=== PATIENT | male | born 1955 | race Caucasian/White ===

== ENCOUNTER 2017-06-11 16:50 | Inpatient (IN) | payer OTHER ==
[~2017-06-11] VITALS: Ht 182.9 cm; Wt 105.0 kg
--- NOTE | 2017-06-11 17:06 | EKG ---
[address] [address] Test Date: 2017-06-11 Test Time: 16:58:25 Pat Name: ARRON BURNS Department: Room: Gender: M Tuckpointer: : 1955 Requested By: COREY MARIA Order Number: [id number] Reading MD: Patrice Zambrano Measurements Intervals [place] Rate: 138 P: [place]: QRS: 37 QRSD: 86 T: 96 QT: 334 QTc: 514 Interpretive Statements ATRIAL FIB./FLUTTER WITH RAPID VENTRICULAR RESPONSE LOW LIMB LEAD VOLTAGE QRS(T) CONTOUR ABNORMALITY CANNOT RULE OUT ANTEROSEPTAL MYOCARDIAL DAMAGE RI6.01 Unconfirmed report No previous ECG available for comparison Electronically Signed On 06-18-2017 9:15:11 CDT by Patrice Zambrano
[2017-06-11 17:18] LABS: BASO # 0.1 x10^3/uL (0.0-0.2); BASO % 1 % (0-3); EOS # 0.2 x10^3/uL (0.0-0.7); EOS % 3 % (0-3); HEMATOCRIT 45.3 % (39.0-53.0); HEMOGLOBIN 15.1 g/dL (13.0-17.5); LYMPH % 33 % (24-48); MEAN CORPUSCULAR HEMOGLOBIN 31 pg (25-35); MEAN CORPUSCULAR HGB CONC 33 g/dL (31-37); MEAN CORPUSCULAR VOLUME 92 fL (79-100); MONO # 0.8 x10^3/uL (0.0-1.1); MONO % 13 % (0-9); NEUT % 50 % (31-73); PLATELET COUNT 113 x10^3/uL (140-400); RED BLOOD COUNT 4.93 x10^6/uL (4.30-5.70); RED CELL DISTRIBUTION WIDTH 13.4 % (11.5-14.5)
--- NOTE | 2017-06-11 17:24 | PHYS DOC ---
Past History Past Medical History: A-Fib, High Cholesterol Past Surgical History: Other Alcohol Use: None Drug Use: None Adult General Chief Complaint Chief Complaint: SHORTNESS OF BREATH HPI HPI 62-year-old male presenting to the emergency department after being in a local primary care doctor's office to be evaluated for shortness of breath. Upon arrival to their facility the patient was noted to have a rapid heartbeat and was subsequently transferred here by EMS for stabilization. The patient has mild shortness of breath. He denies chest pain. He does feel palpitations. Onset 2 days. Location chest. Duration intermittent. No alleviating or exacerbating factors present. He has a history of an ablation previously. Review of systems is negative for fevers chills nausea vomiting cough. All other review of systems is negative unless otherwise noted in history of present illness. ED course: 62-year-old male presenting to the emergency department today with palpitations. Patient is found to be in A. fib with RVR. Diltiazem bolus and drip ordered. Blood work sent. Patient was then admitted to our ICU for further evaluation workup and care. Troponin mildly elevated. Aspirin given. Cardiology consult placed. Review of Systems Review of Systems SEE ABOVE. Family History Family History E Current Medications Current Medications Current Medications Medications (Trade) Dose Ordered Sig/William Start Time Stop Time Status Last Admin Dose Admin Diltiazem HCl (Cardizem) 20 mg 1X ONCE 06/11/17 17:30 06/11/17 17:31 Diltiazem HCl 125 mg/Dextrose 125 ml @ 10 mls/hr 1X ONCE 06/11/17 17:30 06/12/17 05:59 Allergies Allergies Allergies Coded Allergies Type Severity Reaction Last Updated Verified Fuhvbbu-Ckn-Sks Reductase Inhibitor Allergy Unknown 06/11/17 Yes digoxin Allergy Unknown 06/11/17 Yes lisinopril Allergy Unknown 06/11/17 Yes Physical Exam Physical Exam Constitutional: Well developed, well nourished, no acute distress, non-toxic appearance. [] HENT: Normocephalic, atraumatic, bilateral external ears normal, oropharynx moist, no oral exudates, nose normal. [] Eyes: PERRLA, EOMI, conjunctiva normal, no discharge. [] Neck: Normal range of motion, no tenderness, supple, no stridor. [] Cardiovascular:Heart rate regular rhythm, no murmur [] Lungs & Thorax: Bilateral breath sounds clear to auscultation [] Abdomen: Bowel sounds normal, soft, no tenderness, no masses, no pulsatile masses. [] Skin: Warm, dry, no erythema, no rash. [] Back: No tenderness, no CVA tenderness. [] Extremities: No tenderness, no cyanosis, no clubbing, ROM intact, no edema. [] Neurologic: Alert and oriented X 3, normal motor function, normal sensory function, no focal deficits noted. [] Psychologic: Affect normal, judgement normal, mood normal. [] Current Patient Data Vital Signs Vital Signs Date Time Temp Pulse Resp B/P (MAP) Pulse Ox O2 Delivery O2 Flow Rate FiO2 06/11/17 16:57 97.9 128 20 98 Room Air EKG EKG [] Radiology/Procedures Radiology/Procedures [] Course & Med Decision Making Course & Med Decision Making Pertinent Labs and Imaging studies reviewed. (See chart for details) [] Dragon Disclaimer Dragon Disclaimer This chart was dictated in whole or in part using Voice Recognition software in a busy, high-work load, and often noisy Emergency Department environment. It may contain unintended and wholly unrecognized errors or omissions. Departure Departure: Impression: Primary Impression: Atrial fibrillation with RVR Additional Impression: Elevated troponin Disposition: ADMITTED INPATIENT Condition: IMPROVED Referrals: ROSENDO WARD MD (PCP) Problem Qualifiers COREY MARIA MD Jun 11, 2017 17:24
[2017-06-11] MEDS ORDERED: dilTIAZem 25 MG/5 ML VIAL IVP ONE (17:30)
[2017-06-11 17:36] LABS: ALBUMIN 3.8 g/dL (3.4-5.0); CALCIUM 8.4 mg/dL (8.5-10.1); CREATININE 1.4 mg/dL (0.7-1.3); DIRECT BILIRUBIN 0.3 mg/dL (0.0-0.2); GFR 51.2; MAGNESIUM 2.3 mg/dL (1.8-2.4); POTASSIUM 4.4 mmol/L (3.5-5.1); TOTAL PROTEIN 6.7 g/dL (6.4-8.2)
[2017-06-11 17:37] LABS: TOTAL BILIRUBIN 1.6 mg/dL (0.2-1.0)
[2017-06-11 18:12] LABS: BACTERIA,URINE 0 /HPF (0-FEW); BILIRUBIN,URINE NEG (NEG); CLARITY,URINE CLEAR; COLOR,URINE YELLOW; GLUCOSE,URINE NEG (NEG); NITRITE,URINE NEG (NEG); RBC,URINE 0 /HPF (0-2); SQUAMOUS EPITHELIAL CELL,UR OCC /LPF; UROBILINOGEN,URINE 0.2 mg/dL (0.2 mg/dL); WBC,URINE 0 /HPF (0-4)
[2017-06-11] MEDS ORDERED: MORPHINE SULFATE 2 MG/ML DISP.SYRIN. IV PRN (18:15)
[2017-06-11] MEDS ORDERED: ONDANSETRON PF 4 MG/2 ML VIAL. IV PRN ×2 (18:15→19:00)
[2017-06-11 19:26] VITALS: BP 95/72
[2017-06-11 20:08] VITALS: BP 103/86
[2017-06-11 21:00] VITALS: BP 106/63
[2017-06-11] MEDS: ENOXAPARIN ** NOTE DOSE ** SYRINGE SQ SCH (21:05)
[2017-06-11 21:54] VITALS: BP 99/74
[2017-06-11] MEDS ORDERED: DEXTROSE 5% IV PRN (22:45)
[2017-06-11] MEDS ORDERED: DILTIAZEM IV PRN (22:45)
[2017-06-11 22:58] VITALS: BP 91/71
[2017-06-11 23:51] VITALS: BP 81/67
[2017-06-12] VITALS (29 sets, daily range): BP systolic 76–125; BP diastolic 55–94
--- NOTE | 2017-06-12 05:15 | ACF ---
Admission Criteria Forms ATRIAL FIBRILLATION Clinical Indications for Admission to Inpatient Care (Place 'X' for any and all applicable criteria): Admission indicated for ANY ONE of the following(1)(2)(3)(4)(5) : [ ]I. Myocardial ischemia [X]II. Dyspnea or hypoxemia [ ]III. Hemodynamic instability [ ]IV. Heart failure (e.g., pulmonary edema) (7) [ ]V. New-onset (less than 48 hours) atrial fibrillation with high risk for causing complications secondary to comorbidities (eg, symptomatic heart failure ) [ ]. Altered mental status [ ]VII. Syncope [ ]VIII. Patient has implantable cardioverter defibrillator that has fired more than once within past 24hr or needs immediate adjustment of settings that cannot be done other than in inpatient setting. (8) [ ]IX. Suspected accessory pathway (e.g., Nqbgg-Strykltmk-Psicp syndrome) on ECG [ ]X. Recent systemic thromboembolism (eg, stroke) [ ]XI. Medication toxicity (e.g., digitalis) causing arrhythmia(9) [ ]XII. Underlying medical condition that necessitates inpatient care (e.g., thyrotoxicosis, pneumonia) (10) [ ]XIII. Continuous ECG monitoring is required for condition causing arrhythmia (e.g., severe hyperkalemia, hypokalemia, acid-base disturbance).(11)(12)(13) [ ]XIV. Initiation of antiarrhythmic drug therapy is needed in patient at high risk of adverse effects as indicated by ANY ONE of the following: [ ]a) Significant structural heart disease (e.g., reduced ejection fraction, congenital heart disease, valvular heart disease) [ ]b) Prolonged QT interval [ ]c) Underlying sinus node or atrioventricular conduction disturbances [ ]d) Need for treatment with antiarrhythmic drugs that have significant proarrhythmic potential (e.g., dofetilide, sotalol, procainamide) [ ]e) Patient whose sinus rhythm has never been observed on ECG [ ]XV. Intolerable symptoms despite optimal outpatient treatment [ ]XVI. Elective or urgent cardioversion that cannot be performed on outpatient basis or during observation care. [A] (Use also Atrial Fibrillation: Observation Care ) as appropriate.(14) [ ]XVII.Contraindications and/or Inappropriate clinical situations for Observational Care in patients with Atrial Fibrillation, when ANY ONE of the following is required: [ ]a) Patient with High risk of cardiac embolism (e.g, patients with previous cardiac embolism, LVEF < 40%, age >75 and patients with prosthetic valve) 18 [ ]b) Patient with Moderate risk including DM patient, CAD and patient aged 65-75 18 [ ]c) Patient with any change in cardiac biomarker especially troponin should be managed as high risk in an inpatient setting 19 [ ]d) Physician judgement irrespective of ECG and other diagnostic findings 20 [ ]XVIII.General contraindications and/or Inappropriate clinical situations for Observational Care in patients with Atrial Fibrillation, when ANY ONE of the following is required: [ ]a) Prediction of prolongation of LOS based on ANY ONE of the following may be considered as a contraindication for observational care 2, 3, 4, 5, 6, 7, 8, 9, 10, 11 [ ]i) Age > 65 yrs. [ ]ii) Patient arriving by ambulance [ ]iii) Patient with high acuity [ ]iv) Patient requiring vital sign monitoring [ ]v) Patient on IV medication [ ]b) Systolic blood pressures 180mmHg 3,12 [ ]c) Patient with altered mental status including delirium and other alteration of consciousness3 [ ]d) Patient whose discharge disposition will be to a [facility] home or rehabilitation home should not be managed in Emergency Department Observation Unit. CMS rule requires 3 days hospital stay before such placement.3,13 [ ]e) Patient with failure to thrive due to broad array of etiologies 3,16,17 [ ]f) Inability to ambulate 3,14 Extended stay beyond goal length of stay may be needed for (1)(25)(26): [ ]a) Unstable comorbidities [ ]b) Persistently uncontrolled atrial fibrillation or other arrhythmias [ ]c) Acute thromboembolic event (e.g., stroke, limb ischemia) [ ]d) Need for inpatient attainment of full anticoagulation The original [employer] content created by [employer] has been revised. The portions of the content which have been revised are identified through the use of italic text or in bold, and [facility] has neither reviewed nor approved the modified material. All other unmodified content is copyright [employer]. Please see references footnoted in the original [facility] edition 2016 Admission Criteria Met?: Yes ROSELYN MORTON Jun 12, 2017 05:14
[2017-06-12 06:33] LABS: CALCIUM 8.4 mg/dL (8.5-10.1); CREATININE 1.2 mg/dL (0.7-1.3); GFR 61.1; POTASSIUM 4.2 mmol/L (3.5-5.1)
[2017-06-12 06:36] LABS: BASO % 1 % (0-3); EOS # 0.2 x10^3/uL (0.0-0.7); EOS % 4 % (0-3); HEMATOCRIT 44.2 % (39.0-53.0); HEMOGLOBIN 14.9 g/dL (13.0-17.5); LYMPH % 36 % (24-48); MEAN CORPUSCULAR HEMOGLOBIN 31 pg (25-35); MEAN CORPUSCULAR HGB CONC 34 g/dL (31-37); MEAN CORPUSCULAR VOLUME 92 fL (79-100); MONO # 0.6 x10^3/uL (0.0-1.1); MONO % 12 % (0-9); NEUT # 2.6 x10^3uL (1.8-7.7); NEUT % 48 % (31-73); PLATELET COUNT 112 x10^3/uL (140-400); RED BLOOD COUNT 4.81 x10^6/uL (4.30-5.70); RED CELL DISTRIBUTION WIDTH 13.6 % (11.5-14.5); WHITE BLOOD COUNT 5.4 x10^3/uL (4.0-11.0)
[2017-06-12] MEDS: ENOXAPARIN ** NOTE DOSE ** SYRINGE SQ SCH (07:18)
[2017-06-12 09:20] LABS: DIRECT BILIRUBIN 0.3 mg/dL (0.0-0.2); TOTAL BILIRUBIN 1.8 mg/dL (0.2-1.0)
--- NOTE | 2017-06-12 09:22 | PDOC2 ---
CONSULT Date of Admission DATE: 06/12/17 TIME: : Reason for Consult: atrial fibrillation with RVR Problem List Problems Medical Problems: (1) Atrial fibrillation with RVR Status: Acute (2) Elevated troponin Status: Acute History of Present Illness Mr Perez is a 62 year old male with history of atrial fibrillation s/p RFA about 5-6 years ago. He presents with complaints of dyspnea and dry cough for about 2 weeks. He reports orthopnea and PND worsened in the last 36 hours. He was seen in his PCP office and found to be in atrial fibrillation with RVR so admitted to hospital. He denies any chest discomfort. He denies lightheadedness or syncope. He denies edema. Dyspnea is increased with exertion (flight of stairs) and over the last couple days with supine position. He denies regular exercise but remains active and denies functional limitations normally. 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 He reports normal cardiac cath at that time. Past Surgical History none Family History cancer Social History , [place], non smoker x 10 years, no significant ETOH, no illicit drugs Current Medications Current Medications Diltiazem HCl (Cardizem) 20 mg 1X ONCE IVP Last administered on 06/11/17 17:10 ; Start 06/11/17 at 17:30; Stop 06/11/17 at 17:31; Status DC Diltiazem HCl 125 mg/Dextrose 125 ml @ 10 mls/hr 1X ONCE IV Last administered on 06/11/17 17:32; Start 06/11/17 at 17:30; Stop 06/12/17 at 05:59; Status DC Ondansetron HCl (Zofran) 4 mg PRN Q4HRS PRN IV NAUSEA/VOMITING; Start 06/11/17 at 18:15; Stop 06/11/17 at 18:51; Status DC Morphine Sulfate (Morphine 2mg Syringe) 2 mg PRN Q2HR PRN IV PAIN; Start at 18:15; Stop 06/12/17 at 18:14 Ondansetron HCl (Zofran) 4 mg PRN Q8HRS PRN IV NAUSEA/VOMITING; Start 06/11/17 at 19:00 Enoxaparin Sodium (Lovenox 100mg Syringe) 100 mg Q12HR SQ Last administered on 8/8/17at 07:18; Start 06/11/17 at 21:00 Diltiazem HCl 100 mg/Dextrose 125 ml @ 0 mls/hr CONT PRN IV SEE I/O RECORD; Start 06/11/17 at 22:45 Allergies: Coded Allergies: Zobeuyf-Hfv-Arl Reductase Inhibitor (Verified Allergy, Unknown, 06/11/17) digoxin (Verified Allergy, Unknown, 06/11/17) lisinopril (Verified Allergy, Unknown, 06/11/17) Review of System as per HPI or negative General: Alert, Oriented X3, Cooperative, No acute distress HEENT: Atraumatic, EOMI, Mucous membr. moist/pink, Other (No bruits, No JVD/HJR ) Lungs: Other (few crackles left base otherwise essentially clear) Heart: Other (irregular rate and rhythm without gallops, clicks or rubs. no obvious murmurs. ) Abdomen: Normal bowel sounds, Soft, No tenderness Extremities: No cyanosis, No edema, Normal pulses Neuro: Normal speech, Strength at 5/5 X4 ext Psych/Mental Status: Mental status NL, Mood NL VITALS Vital Signs Date Time Temp Pulse Resp B/P (MAP) Pulse Ox O2 Delivery O2 Flow Rate FiO2 06/12/17 08:30 86 20 91/63 (72) 93 Room Air 06/12/17 07:00 97.9 Labs Laboratory Tests Test 06/11/17 17:05 06/11/17 17:25 06/12/17 00:02 06/12/17 06:00 White Blood Count 6.0 x10^3/uL (4.0-11.0) 5.4 x10^3/uL (4.0-11.0) Red Blood Count 4.93 x10^6/uL (4.30-5.70) 4.81 x10^6/uL (4.30-5.70) Hemoglobin 15.1 g/dL (13.0-17.5) 14.9 g/dL (13.0-17.5) Hematocrit 45.3 % (39.0-53.0) 44.2 % (39.0-53.0) Mean Corpuscular Volume 92 fL (79-100) 92 fL (79-100) Mean Corpuscular Hemoglobin 31 pg (25-35) 31 pg (25-35) Mean Corpuscular Hemoglobin Concent 33 g/dL (31-37) 34 g/dL (31-37) Red Cell Distribution Width 13.4 % (11.5-14.5) 13.6 % (11.5-14.5) Platelet Count 113 x10^3/uL (140-400) 112 x10^3/uL (140-400) Neutrophils (%) (Auto) 50 % (31-73) 48 % (31-73) Lymphocytes (%) (Auto) 33 % (24-48) 36 % (24-48) Monocytes (%) (Auto) 13 % (0-9) 12 % (0-9) Eosinophils (%) (Auto) 3 % (0-3) 4 % (0-3) Basophils (%) (Auto) 1 % (0-3) 1 % (0-3) Neutrophils # (Auto) 3.0 x10^3uL (1.8-7.7) 2.6 x10^3uL (1.8-7.7) Lymphocytes # (Auto) 2.0 x10^3/uL (1.0-4.8) 2.0 x10^3/uL (1.0-4.8) Monocytes # (Auto) 0.8 x10^3/uL (0.0-1.1) 0.6 x10^3/uL (0.0-1.1) Eosinophils # (Auto) 0.2 x10^3/uL (0.0-0.7) 0.2 x10^3/uL (0.0-0.7) Basophils # (Auto) 0.1 x10^3/uL (0.0-0.2) 0.0 x10^3/uL (0.0-0.2) Prothrombin Time 11.1 SEC (9.4-11.4) Prothromb Time International Ratio 1.1 (0.9-1.1) Activated Partial Thromboplast Time 26 SEC (23-33) Sodium Level 141 mmol/L (136-145) 141 mmol/L (136-145) Potassium Level 4.4 mmol/L (3.5-5.1) 4.2 mmol/L (3.5-5.1) Chloride Level 106 mmol/L (98-107) 107 mmol/L (98-107) Carbon Dioxide Level 27 mmol/L (21-32) 27 mmol/L (21-32) Anion Gap 8 (6-14) 7 (6-14) Blood Urea Nitrogen 16 mg/dL (8-26) 15 mg/dL (8-26) Creatinine 1.4 mg/dL (0.7-1.3) 1.2 mg/dL (0.7-1.3) Estimated GFR (Cockcroft-Gault) 51.2 61.1 Glucose Level 95 mg/dL (70-99) 103 mg/dL (70-99) Calcium Level 8.4 mg/dL (8.5-10.1) 8.4 mg/dL (8.5-10.1) Magnesium Level 2.3 mg/dL (1.8-2.4) Total Bilirubin 1.6 mg/dL (0.2-1.0) Direct Bilirubin 0.3 mg/dL (0.0-0.2) Aspartate Amino Transf (AST/SGOT) 35 U/L (15-37) Alanine Aminotransferase (ALT/SGPT) 42 U/L (16-63) Alkaline Phosphatase 69 U/L (46-116) Troponin I Quantitative 0.088 ng/mL (0-0.055) 0.156 ng/mL (0-0.055) 0.219 ng/mL (0-0.055) SZ-Vjo-L-Type Natriuretic Peptide 3068 pg/mL (0-124) Total Protein 6.7 g/dL (6.4-8.2) Albumin 3.8 g/dL (3.4-5.0) Lipase 113 U/L (73-393) Urine Collection Type Unknown Urine Color Yellow Urine Clarity Clear Urine pH 5.5 Urine Specific [place] <=1.005 Urine Protein Neg (NEG-TRACE) Urine Glucose (UA) Neg mg/dL (NEG) Urine Ketones (Stick) Neg mg/dL (NEG) Urine Blood Neg (NEG) Urine Nitrite Neg (NEG) Urine Bilirubin Neg (NEG) Urine Urobilinogen Dipstick 0.2 mg/dL (0.2 mg/dL) Urine Leukocyte Esterase Neg (NEG) Urine RBC 0 /HPF (0-2) Urine WBC 0 /HPF (0-4) Urine Squamous Epithelial Cells Occ /LPF Urine Bacteria 0 /HPF (0-FEW) Images EKG - atrial fibrillation with RVR and non specific st/t abn CXR - IMPRESSION: Probable mild pulmonary vascular congestion. Small pulmonary nodule in the right upper lobe. Assessment/Plan 1. Atrial fibrillation with RVR - unknown duration, rate control improved with Cardizem drip. History of multiple failed antiarrhythmics and an intolerance to digoxin. S/P RFA in 2010, maintained with coreg and without significant problems since that time. [id number] score = 0. 2. elevated troponin c/w NSTEMI - prob demand related. Await echocardiogram. (reportedly normal coronaries by cath about 5 years ago). Check lipids. 3. mild heart failure, prob diastolic secondary to AF RVR. 4. hypotension, mild 5. hyperlipidemia - intolerant to statins. Consider Repatha or Praluent if lipids warrant. Suggest stop cardizem and change to amiodarone, add anticoagulant ( I believe Xarelto is on formulary at [facility]) as he may require cardioversion and atrial fibrillation duration is unknown. await echo. plan for MPI in am unless significant abnormalities on echo. Add low dose metoprolol for rate control if pressure will tolerate. May need low dose digoxin for added rate control if pressures remain low. Problems: MARNIE VARGAS APRN Jun 12, 2017 09:22
--- NOTE | 2017-06-12 11:10 | RAD ---
Indication shortness of air. AP views of the chest were obtained and are compared to a study 10/10/2007. There is slight interstitial prominence relative to the previous exam. Moderate pulmonary vascular congestion is suspect. There is no consolidated pneumonia. There is tiny nodule in the right upper lobe. Follow-up imaging should be considered. There is no pleural fluid or pneumothorax. The findings, regarding the nodule in the right upper lobe, were communicated to Dr. Ivan, at 1105 IMPRESSION: Probable mild pulmonary vascular congestion. Small pulmonary nodule in the right upper lobe.
[2017-06-12] MEDS: METOPROLOL TART IMMED RELEASE 25 MG TABLET PO SCH ×2 (11:45→21:19)
[2017-06-12] MEDS ORDERED: AMIODARONE 150 MG in IV DEXTROSE 5% 100 ML IVP ONE (11:45)
[2017-06-12] MEDS ORDERED: AMIODARONE 450 MG in IV DEXTROSE 5% 250 ML IV PRN (11:55)
--- NOTE | 2017-06-12 13:12 | RAD ---
Indication headaches for one week. Noncontrast images of the head were obtained. No prior imaging is available for comparison. The calvarium appears unremarkable. The visualized paranasal sinuses appear normal. There is no subdural or epidural hematoma. There is no mass or midline shift. No hemorrhage is seen. No acute finding is apparent. IMPRESSION: No acute or significant finding is seen in the head PQRS Compliance Statement: One or more of the following individualized dose reduction techniques were utilized for this examination: 1. Automated exposure control 2. Adjustment of the mA and/or kV according to patient size 3. Use of iterative reconstruction technique
--- NOTE | 2017-06-12 13:37 | CARD ---
APPROVED REPORT EXAM: Two-dimensional and M-mode echocardiogram with Doppler and color Doppler. Other Information Quality : GoodHR: 99bpm Rhythm : Atrial Fibrillation INDICATION Atrial Fibrillation RVR 2D DIMENSIONS RVDd2.9 (2.9-3.5cm)Left Atrium(2D)4.4 (1.6-4.0cm) IVSd1.0 (0.7-1.1cm)Aortic Root(2D)3.5 (2.0-3.7cm) LVDd5.9 (3.9-5.9cm)LVOT Diameter2.3 (1.8-2.4cm) PWd1.0 (0.7-1.1cm)LVDs4.0 (2.5-4.0cm) FS (%) 32.3 %SV102.8 ml LVEF(%)59.8 (>50%) Aortic Valve AoV Peak Bola.102.2cm/sAoV VTI16.3cm AO Peak GR.4.2mmHgLVOT Peak Bola.78.4cm/s LVOT VTI 12.18cmAO Mean GR.3mmHg HAYLEY (VMAX)3.90jw9AUK (VTI)3.09cm2 Pulmonary Valve PV Peak Txmzrwur73.8cm/sPV Peak Grad.2mmHg Tricuspid Valve TR P. Owmoqpfx888gd/sTR Peak Gr.40mmHg LEFT VENTRICLE The left ventricle is normal size. There is normal left ventricular wall thickness. Left ventricle sy stolic function is severely impaired. The Ejection Fraction is 25-30%. There is moderate to severe gl obal hypokinesis of the left ventricle with inferior akinesis. Tissue Doppler imaging reveals severe left ventricular diastolic dysfunction. No left ventricle thrombus noted on this study. RIGHT VENTRICLE The right ventricle is normal size. There is normal right ventricular wall thickness. RV Systolic fun ction is moderately reduced. ATRIA The left atrium is mildly dilated. The right atrium size is normal. The interatrial septum is intact with no evidence for an atrial septal defect or patent foramen ovale as noted on 2-D or Doppler imagi ng. AORTIC VALVE The aortic valve is mildly sclerotic. Doppler and Color Flow revealed no significant aortic regurgita tion. There is no significant aortic valvular stenosis. MITRAL VALVE The mitral valve leaflets are mildly thickened. There is no evidence of mitral valve prolapse. There is no mitral valve stenosis. Doppler and Color Flow revealed severe ischemic posteriorly directed christine ral regurgitation. TRICUSPID VALVE Doppler and Color Flow revealed mild tricuspid regurgitation.The pulmonary artery systolic pressure i s estimated at 43 mmHg. There is mild pulmonary hypertension. PULMONIC VALVE The pulmonic valve is not well visualized but appears to open well. Doppler and Color Flow revealed n o pulmonic valvular regurgitation. There is no pulmonic valvular stenosis by spectral Doppler. GREAT VESSELS The aortic root is mildly enlarged. The ascending aorta is mlidly dilated. The IVC is normal in size and collapses >50% with inspiration. PERICARDIAL EFFUSION There is small right pleural effusion. There is no evidence of significant pericardial effusion. Critical Notification Critical Value: No <Conclusion> Left ventricle systolic function is severely impaired. The Ejection Fraction is 25-30%. There is moderate to severe global hypokinesis of the left ventricle with inferior akinesis. RV Systolic function is moderately reduced. Doppler and Color Flow revealed severe ischemic posteriorly directed mitral regurgitation. Doppler and Color Flow revealed mild tricuspid regurgitation.The pulmonary artery systolic pressure i s estimated at 43 mmHg. There is mild pulmonary hypertension. There is small right pleural effusion.
--- NOTE | 2017-06-12 14:16 | HP ---
ADMIT DATE: 06/11/2017 REASON FOR ADMISSION: 1. Atrial fibrillation with rapid ventricular response. 2. Elevated troponin. HISTORY OF PRESENT ILLNESS: This is a 62-year-old male who went to his doctor's office where he was having some problems with the dry cough and rapid breathing. He was found to have a rapid heart rate and was sent to the Emergency Room and was then found to be in A-fib with RVR and was admitted. PAST MEDICAL HISTORY: Atrial fibrillation about approximately 7 years ago. He underwent a RFA at that time. Other history, obstructive sleep apnea, hypertension, and hyperlipidemia. PAST SURGICAL HISTORY: None. FAMILY HISTORY: Father of cancer. Mother is still living at 84 without issues. 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 MEDICATIONS: Reviewed and are available on the MAR. He had previously been on Coumadin. ALLERGIES: STATINS, DIGOXIN, and LISINOPRIL. HOME MEDICATIONS: Coreg as a full aspirin. REVIEW OF SYSTEMS: Positive for a dry cough for the last 2 weeks and some mild shortness of breath, otherwise negative. Positive for persistent post-headache. OBJECTIVE: VITAL SIGNS: Blood pressure is 98/78, pulse 97, respirations 18. His maximum pulse was 145, yesterday afternoon sat is 94% on room air. HEENT: Hearing is normal. Eyes are clear. Nose patent. Throat clear. NECK: Supple. No carotid bruits. LUNGS: Clear to auscultation. CARDIOVASCULAR: Irregular rhythm and rate. ABDOMEN: Soft, nontender. EXTREMITIES: Without edema. No calf tenderness. NEUROLOGIC: Intact. LABORATORY DATA: Platelet count 112,000. Bilirubin of 1.8, direct bilirubin of 0.3 and his troponin has increased from 0.088-0.0219, last 12 hours normal coagulation factor, normal urine. IMAGING: EKG: A-fib with RVR. Chest x-ray shows mild pulmonary vascular congestion and a small pulmonary nodule in the right upper lobe. CT of the head was negative. ASSESSMENT: 1. Atrial fibrillation with rapid ventricular response. 2. Incidental finding of small right upper lobe pulmonary nodule. 3. Status post RFA for atrial fibrillation 6 or 7 years ago. 4. Mild heart failure. 5. Elevated troponin, doing echocardiographic, Cardiology states non-STEMI. 6. Hypotension, mild. 7. Hyperlipidemia. 8. Headaches. 9. Hyperbilirubinemia, questionable etiology, normal alkaline phosphatase and liver enzymes. PLAN: We will check an abdominal ultrasound. Other plans include amiodarone drip and I believe stress test tomorrow and stopping Cardizem. ROSENDO PALMER DO DR: NIKKI/berry JOB#: [id number] / [id number]
[2017-06-12] MEDS ORDERED: HEPARIN 25,000UTS/500ML PREMIX 500 ML IV PRN ×2 (16:30→16:50)
[2017-06-12] MEDS ORDERED: HEPARIN for IV BOLUS 10,000 UNIT/10 ML VIAL. IV ONE (16:50)
[2017-06-12] MEDS ORDERED: RIVAROXABAN 10 MG TABLET. PO SCH (17:00)
[2017-06-12] MEDS ORDERED: HEPARIN for IV BOLUS 10,000 UNIT/10 ML VIAL. IV PRN ×2 (17:00)
[2017-06-13] VITALS (14 sets, daily range): BP systolic 81–113; BP diastolic 58–90
[2017-06-13] MEDS ORDERED: IV NORMAL SALINE 500ML 0 ML ONE (00:40)
[2017-06-13 06:32] LABS: BASO % 0 % (0-3); EOS % 1 % (0-3); HEMATOCRIT 43.9 % (39.0-53.0); HEMOGLOBIN 14.9 g/dL (13.0-17.5); LYMPH # 2.2 x10^3/uL (1.0-4.8); LYMPH % 32 % (24-48); MEAN CORPUSCULAR HEMOGLOBIN 31 pg (25-35); MEAN CORPUSCULAR HGB CONC 34 g/dL (31-37); MEAN CORPUSCULAR VOLUME 91 fL (79-100); MONO # 0.8 x10^3/uL (0.0-1.1); MONO % 12 % (0-9); NEUT # 3.7 x10^3uL (1.8-7.7); NEUT % 55 % (31-73); PLATELET COUNT 108 x10^3/uL (140-400); RED BLOOD COUNT 4.83 x10^6/uL (4.30-5.70); RED CELL DISTRIBUTION WIDTH 13.9 % (11.5-14.5); WHITE BLOOD COUNT 6.7 x10^3/uL (4.0-11.0)
[2017-06-13 06:46] LABS: ALBUMIN 3.5 g/dL (3.4-5.0); ALBUMIN/GLOBULIN RATIO 1.1 (1.0-1.7); CALCIUM 8.4 mg/dL (8.5-10.1); CREATININE 1.2 mg/dL (0.7-1.3); GFR 61.1; MAGNESIUM 2.1 mg/dL (1.8-2.4); POTASSIUM 4.1 mmol/L (3.5-5.1); TOTAL BILIRUBIN 1.9 mg/dL (0.2-1.0); TOTAL PROTEIN 6.7 g/dL (6.4-8.2)
--- NOTE | 2017-06-13 12:53 | PDOC3 ---
Discharge Summary Visit Information Date of Admission: Jun 12, 2017 Date of Discharge: Jun 13, 2017 Final Diagnosis Problems Medical Problems: (1) Atrial fibrillation with RVR Status: Acute (2) Elevated troponin Status: Acute . Atrial fibrillation with RVR - unknown duration, r 2. elevated troponin c/w NSTEMI - prob demand related. 3. mild heart failure, prob diastolic AND SYSTOLIC secondary to AF RVR. 4. hypotension, mild 5. hyperlipidemia - intolerant to statins. . 2. Incidental finding of small right upper lobe pulmonary nodule. 3. Status post RFA for atrial fibrillation 6 or 7 years ago. 4. Mild heart failure. 5. Elevated troponin, doing echocardiographic, Cardiology states non-STEMI. 6. Hypotension, mild. 7. Hyperlipidemia. 8. Headaches. 9. Hyperbilirubinemia, questionable etiology, normal alkaline phosphatase and liver enzymes. 10. CARDIOMYOPATHYLeft ventricle systolic function is severely impaired. The Ejection Fraction is 25-30%. 11.There is moderate to severe global hypokinesis of the left ventricle with inferior akinesis. 12. RV Systolic function is moderately reduced. 13. severe ischemic mitral regurgitatio 14. mild tricuspid regurgitation. 15. There is mild pulmonary hypertension. Problems: Brief Hospital Course Allergies Allergies Coded Allergies Type Severity Reaction Last Updated Verified Foptvys-Icp-Wnf Reductase Inhibitor Allergy Unknown 06/11/17 Yes digoxin Allergy Unknown 06/11/17 Yes lisinopril Allergy Unknown 06/11/17 Yes Vital Signs Vital Signs Date Time Temp Pulse Resp B/P (MAP) Pulse Ox O2 Delivery O2 Flow Rate FiO2 06/13/17 07:00 Room Air 06/13/17 06:38 121 24 92/58 (69) 96 2.0 06/13/17 00:40 97.5 Lab Results Laboratory Tests Test 06/11/17 17:05 06/11/17 17:25 06/11/17 18:40 06/12/17 00:02 White Blood Count 6.0 x10^3/uL (4.0-11.0) Red Blood Count 4.93 x10^6/uL (4.30-5.70) Hemoglobin 15.1 g/dL (13.0-17.5) Hematocrit 45.3 % (39.0-53.0) Mean Corpuscular Volume 92 fL (79-100) Mean Corpuscular Hemoglobin 31 pg (25-35) Mean Corpuscular Hemoglobin Concent 33 g/dL (31-37) Red Cell Distribution Width 13.4 % (11.5-14.5) Platelet Count 113 x10^3/uL (140-400) Neutrophils (%) (Auto) 50 % (31-73) Lymphocytes (%) (Auto) 33 % (24-48) Monocytes (%) (Auto) 13 % (0-9) Eosinophils (%) (Auto) 3 % (0-3) Basophils (%) (Auto) 1 % (0-3) Neutrophils # (Auto) 3.0 x10^3uL (1.8-7.7) Lymphocytes # (Auto) 2.0 x10^3/uL (1.0-4.8) Monocytes # (Auto) 0.8 x10^3/uL (0.0-1.1) Eosinophils # (Auto) 0.2 x10^3/uL (0.0-0.7) Basophils # (Auto) 0.1 x10^3/uL (0.0-0.2) Prothrombin Time 11.1 SEC (9.4-11.4) Prothromb Time International Ratio 1.1 (0.9-1.1) Activated Partial Thromboplast Time 26 SEC (23-33) Sodium Level 141 mmol/L (136-145) Potassium Level 4.4 mmol/L (3.5-5.1) Chloride Level 106 mmol/L (98-107) Carbon Dioxide Level 27 mmol/L (21-32) Anion Gap 8 (6-14) Blood Urea Nitrogen 16 mg/dL (8-26) Creatinine 1.4 mg/dL (0.7-1.3) Estimated GFR (Cockcroft-Gault) 51.2 Glucose Level 95 mg/dL (70-99) Calcium Level 8.4 mg/dL (8.5-10.1) Magnesium Level 2.3 mg/dL (1.8-2.4) Total Bilirubin 1.6 mg/dL (0.2-1.0) Direct Bilirubin 0.3 mg/dL (0.0-0.2) Aspartate Amino Transf (AST/SGOT) 35 U/L (15-37) Alanine Aminotransferase (ALT/SGPT) 42 U/L (16-63) Alkaline Phosphatase 69 U/L (46-116) Troponin I Quantitative 0.088 ng/mL (0-0.055) 0.156 ng/mL (0-0.055) OL-Xqu-B-Type Natriuretic Peptide 3068 pg/mL (0-124) Total Protein 6.7 g/dL (6.4-8.2) Albumin 3.8 g/dL (3.4-5.0) Lipase 113 U/L (73-393) Urine Collection Type Unknown Urine Color Yellow Urine Clarity Clear Urine pH 5.5 Urine Specific [place] <=1.005 Urine Protein Neg (NEG-TRACE) Urine Glucose (UA) Neg mg/dL (NEG) Urine Ketones (Stick) Neg mg/dL (NEG) Urine Blood Neg (NEG) Urine Nitrite Neg (NEG) Urine Bilirubin Neg (NEG) Urine Urobilinogen Dipstick 0.2 mg/dL (0.2 mg/dL) Urine Leukocyte Esterase Neg (NEG) Urine RBC 0 /HPF (0-2) Urine WBC 0 /HPF (0-4) Urine Squamous Epithelial Cells Occ /LPF Urine Bacteria 0 /HPF (0-FEW) Nasal Screen MRSA (PCR) Negative (Negative) Test 06/12/17 00:10 06/12/17 06:00 06/12/17 17:00 06/13/17 06:00 Activated Partial Thromboplast Time 90 SEC (23-33) 28 SEC (23-33) White Blood Count 5.4 x10^3/uL (4.0-11.0) 6.7 x10^3/uL (4.0-11.0) Red Blood Count 4.81 x10^6/uL (4.30-5.70) 4.83 x10^6/uL (4.30-5.70) Hemoglobin 14.9 g/dL (13.0-17.5) 14.9 g/dL (13.0-17.5) Hematocrit 44.2 % (39.0-53.0) 43.9 % (39.0-53.0) Mean Corpuscular Volume 92 fL (79-100) 91 fL (79-100) Mean Corpuscular Hemoglobin 31 pg (25-35) 31 pg (25-35) Mean Corpuscular Hemoglobin Concent 34 g/dL (31-37) 34 g/dL (31-37) Red Cell Distribution Width 13.6 % (11.5-14.5) 13.9 % (11.5-14.5) Platelet Count 112 x10^3/uL (140-400) 108 x10^3/uL (140-400) Neutrophils (%) (Auto) 48 % (31-73) 55 % (31-73) Lymphocytes (%) (Auto) 36 % (24-48) 32 % (24-48) Monocytes (%) (Auto) 12 % (0-9) 12 % (0-9) Eosinophils (%) (Auto) 4 % (0-3) 1 % (0-3) Basophils (%) (Auto) 1 % (0-3) 0 % (0-3) Neutrophils # (Auto) 2.6 x10^3uL (1.8-7.7) 3.7 x10^3uL (1.8-7.7) Lymphocytes # (Auto) 2.0 x10^3/uL (1.0-4.8) 2.2 x10^3/uL (1.0-4.8) Monocytes # (Auto) 0.6 x10^3/uL (0.0-1.1) 0.8 x10^3/uL (0.0-1.1) Eosinophils # (Auto) 0.2 x10^3/uL (0.0-0.7) 0.0 x10^3/uL (0.0-0.7) Basophils # (Auto) 0.0 x10^3/uL (0.0-0.2) 0.0 x10^3/uL (0.0-0.2) Sodium Level 141 mmol/L (136-145) 135 mmol/L (136-145) Potassium Level 4.2 mmol/L (3.5-5.1) 4.1 mmol/L (3.5-5.1) Chloride Level 107 mmol/L (98-107) 103 mmol/L (98-107) Carbon Dioxide Level 27 mmol/L (21-32) 22 mmol/L (21-32) Anion Gap 7 (6-14) 10 (6-14) Blood Urea Nitrogen 15 mg/dL (8-26) 13 mg/dL (8-26) Creatinine 1.2 mg/dL (0.7-1.3) 1.2 mg/dL (0.7-1.3) Estimated GFR (Cockcroft-Gault) 61.1 61.1 Glucose Level 103 mg/dL (70-99) 119 mg/dL (70-99) Calcium Level 8.4 mg/dL (8.5-10.1) 8.4 mg/dL (8.5-10.1) Total Bilirubin 1.8 mg/dL (0.2-1.0) 1.9 mg/dL (0.2-1.0) Direct Bilirubin 0.3 mg/dL (0.0-0.2) 0.4 mg/dL (0.0-0.2) Troponin I Quantitative 0.219 ng/mL (0-0.055) Triglycerides Level 92 mg/dL (0-150) Cholesterol Level 179 mg/dL (0-200) LDL Cholesterol, Calculated 126 mg/dL (0-100) VLDL Cholesterol, Calculated 18 mg/dL (0-40) Non-HDL Cholesterol Calculated 144 mg/dL (0-129) HDL Cholesterol 35 mg/dL (40-60) Cholesterol/HDL Ratio 5.0 BUN/Creatinine Ratio 11 (6-20) Magnesium Level 2.1 mg/dL (1.8-2.4) Aspartate Amino Transf (AST/SGOT) 24 U/L (15-37) Alanine Aminotransferase (ALT/SGPT) 31 U/L (16-63) Alkaline Phosphatase 64 U/L (46-116) Total Protein 6.7 g/dL (6.4-8.2) Albumin 3.5 g/dL (3.4-5.0) Albumin/Globulin Ratio 1.1 (1.0-1.7) Brief Hospital Course Mr. Perez is a 62 old MALE WHO PRESENTED FROM HIS PCPS OFFICE WITH SOB AND A FIB WITH RVR. tHE SUBSEQUENT WORK-UP REVEALED ELEVATED TROPONIN CONSISTENT WITH A NSTEMI, SEVERE CARDIOMYOPATHY, SYSTOLIC HEART FAILURE, SEVERE AORTIC REGURGITATION. hE HAD BEEN ON A CARDIEZEM DRIP WHICH HELPED WITH RATE CONTROL. AFTER RESULTS OF ECHO WERE OBTAINED CARDIOLOGY RECOMMENDED A HEART CATH AND HE WAS TRANSFERRED TO [facility] ON THE MORNING OF 06/13 IN STABLE CONDITION. HIS ELEVATED BILIRUBIN AND HIS SMALL RIGHT PULMONARY NODULE WILL NEED TO BE FOLLOWED-UP UPON AFTER ALL OF THE CURRENT PROBLEMS HAVE BEEN TAKEN CARE OF. HE REMAINED STABLE WHILE HOSPITALIZED. Discharge Information Condition at Discharge: Stable Disposition/Orders: D/C to Another Facility Dischare Medications Current Medications Diltiazem HCl (Cardizem) 20 mg 1X ONCE IVP Last administered on 06/11/17 17:10 ; Start 06/11/17 at 17:30; Stop 06/12/17 at 11:29; Status DC Diltiazem HCl 125 mg/Dextrose 125 ml @ 10 mls/hr 1X ONCE IV Last administered on 06/11/17 17:32; Start 06/11/17 at 17:30; Stop 06/12/17 at 11:29; Status DC Ondansetron HCl (Zofran) 4 mg PRN Q4HRS PRN IV NAUSEA/VOMITING; Start 06/11/17 at 18:15; Stop 06/11/17 at 18:51; Status DC Morphine Sulfate (Morphine 2mg Syringe) 2 mg PRN Q2HR PRN IV PAIN; Start at 18:15; Stop 06/12/17 at 18:14; Status DC Ondansetron HCl (Zofran) 4 mg PRN Q8HRS PRN IV NAUSEA/VOMITING; Start 06/11/17 at 19:00; Stop 06/13/17 at 08:14; Status DC Enoxaparin Sodium (Lovenox 100mg Syringe) 100 mg Q12HR SQ Last administered on 06/12/17 07:18; Start 06/11/17 at 21:00; Stop 06/12/17 at 11:52; Status DC Diltiazem HCl 100 mg/Dextrose 125 ml @ 0 mls/hr CONT PRN IV SEE I/O RECORD; Start 06/11/17 at 22:45; Stop 06/12/17 at 11:29; Status DC Amiodarone HCl 150 mg/Dextrose 103 ml @ 618 mls/hr 1X ONCE IVP Last administered on 06/12/17 12:13; Start 06/12/17 at 11:45; Stop 06/12/17 at 11:54; Status DC Amiodarone HCl 450 mg/Dextrose 259 ml @ 17.26 mls/ hr CONT PRN IV SEE I/O RECORD Last administered on 06/12/17 12:13; Start 06/12/17 at 11:55; Stop at 08:14; Status DC Rivaroxaban (Xarelto) 20 mg DAILYWSUP PO ; Start 06/12/17 at 17:00; Stop 06/12/17 at 17:00; Status DC Metoprolol Tartrate (Lopressor) 12.5 mg BID PO Last administered on 06/12/17 21 :19; Start 06/12/17 at 11:45; Stop 06/13/17 at 08:14; Status DC Heparin Sodium/ Dextrose 500 ml @ 0 mls/hr CONT PRN IV SEE I/O RECORD; Start at 16:30; Stop 06/12/17 at 16:38; Status DC Heparin Sodium/ Dextrose 500 ml @ 0 mls/hr CONT PRN IV SEE I/O RECORD Last administered on 06/12/17 17:18; Start 06/12/17 at 16:50; Stop 06/13/17 at 08:14; Status DC Heparin Sodium (Porcine) 7,800 unit 1X ONCE IV Last administered on 06/12/17 11:45; Start 06/12/17 at 16:50; Stop 06/12/17 at 16:51; Status DC Heparin Sodium (Porcine) 2,000 unit PRN Q6HRS PRN IV FOLLOW PROTOCOL GUIDELINES ; Start 06/12/17 at 17:00; Stop 06/13/17 at 08:14; Status DC Heparin Sodium (Porcine) 1,000 unit PRN Q6HRS PRN IV FOLLOW PROTOCOL GUIDELINES ; Start 06/12/17 at 17:00; Stop 06/13/17 at 08:14; Status DC Sodium Chloride 0 ml @ As Directed STK-MED ONCE .ROUTE ; Start 06/13/17 at 00:40 ; Stop 06/13/17 at 01:08; Status DC Patient Instructions Patient Instuctions TRANSFER TO [facility] FOR CARDIAC CATH. ROSENDO PALMER DO Jun 13, 2017 12:53
== END 2017-06-13 07:10 | disposition short-term general hospital (02) | DRG 280 ==
LOC: ER 16:50 → ICU 17:37
PROVIDERS: ADMIT Family Medicine; ATTEND Family Medicine
DX: I21.4 Non-ST elevation (NSTEMI) myocardial infarction (principal); I50.21 Acute systolic (congestive) heart failure; I42.9 Cardiomyopathy, unspecified; R17 Unspecified jaundice; I48.91 Unspecified atrial fibrillation; I08.1 Rheumatic disorders of both mitral and tricuspid valves; E78.00 Pure hypercholesterolemia, unspecified; E78.5 Hyperlipidemia, unspecified; G47.33 Obstructive sleep apnea (adult) (pediatric); I11.0 Hypertensive heart disease with heart failure; I95.9 Hypotension, unspecified; R91.1 Solitary pulmonary nodule; I27.2 Other secondary pulmonary hypertension; Z80.9 Family history of malignant neoplasm, unspecified; Z88.8 Allergy status to other drugs, medicaments and biological substances
CPT/HCPCS: 36415; 70450; 71010; 80048; 80053; 80061; 80076; 81001; 82247; 82248; 82947; 83690; 83735; 83880; 84484; 85027; 85610; 85730; 87641; 93005; 93306; 96365; J0282; J1644; J1650; J3490; 99285-25